=== PATIENT | female | born 1970 | race African-American/Black ===

== ENCOUNTER 2016-12-08 16:35 | Emergency (ER) | payer SELFPAY ==
--- NOTE | 2016-12-08 17:08 | ER Document Report ---
ED Medical Screen (RME) - General Chief Complaint: Abscess Stated Complaint: LUMP UNDER RIGHT ARM, TOOTH PAIN Notes: Lump under right arm. I greeted and performed a rapid initial assessment of this patient. Comprehensive ED assessment and evaluation of the patient, analysis of test results and completion of the medical decision making process will be conducted by additional ED providers. TRAVEL OUTSIDE OF THE [place] IN LAST 30 DAYS: No - Related Data Allergies/Adverse Reactions: hydrocodone [Hydrocodone] Allergy (Mild, Verified 07/25/14 11:33) VOMITING Past Medical History - Past Medical History Cardiac Medical History: Reports: Hx Hypertension Renal/ Medical History: Denies: Hx Peritoneal Dialysis Psychiatric Medical History: Reports: Hx Depression Past Surgical History: Reports: Hx Gynecologic Surgery - ectopic preg - Immunizations Hx Diphtheria, Pertussis, Tetanus Vaccination: No
[2016-12-08] MEDS ORDERED: OXYCODONE-ACETAMINOPHEN 5-325 MG TABLET PO ONE (19:12)
[2016-12-08] MEDS ORDERED: AMOXICILLIN TR/POT CLAVULANATE 500-125 MG TAB PO ONE (19:13)
[2016-12-08] MEDS ORDERED: ONDANSETRON ODT 4 MG TAB (6 TAB/DSPK) PO PRN (19:16)
--- NOTE | 2016-12-08 19:16 | ER Document Report ---
ED General - General Chief Complaint: Abscess Stated Complaint: LUMP UNDER RIGHT ARM, TOOTH PAIN Notes: Patient is a 46-year-old female with past medical history of recurrent axillary abscesses and hypertension who presents with an ongoing right axillary abscess. Describes the area as a constant, severely painful area. Pain is described as a sharp, stabbing pain. States this feels very similar to prior abscesses that she has had in the past. Nothing improves or worsens or symptoms. She denies any associated constitutional symptoms. Patient also complains of left upper molar dental pain. States that this is been causing her increasing pain over the last 3-4 months. Also describes a dull, constant, aching pain. She has scheduled appointment to see a dentist in the next several weeks. She denies any difficulty breathing or swallowing. TRAVEL OUTSIDE OF THE [place] IN LAST 30 DAYS: No - Related Data Allergies/Adverse Reactions: hydrocodone [Hydrocodone] Allergy (Mild, Verified 07/25/14 11:33) VOMITING Past Medical History - General Information source: Patient - Social History Smoking Status: Current Every Day Smoker Frequency of alcohol use: None Drug Abuse: None Lives with: Spouse/Significant other Family History: Reviewed & Not Pertinent Patient has suicidal ideation: No Patient has homicidal ideation: No - Past Medical History Cardiac Medical History: Reports: Hx Hypertension Renal/ Medical History: Denies: Hx Peritoneal Dialysis Psychiatric Medical History: Reports: Hx Depression Past Surgical History: Reports: Hx Gynecologic Surgery - ectopic preg - Immunizations Hx Diphtheria, Pertussis, Tetanus Vaccination: No Review of Systems - Review of Systems Notes: Constitutional: Negative for fever. HENT: Negative for sore throat. Positive for dental pain Eyes: Negative for visual changes. Cardiovascular: Negative for chest pain. Respiratory: Negative for shortness of breath. Gastrointestinal: Negative for abdominal pain, vomiting or diarrhea. Genitourinary: Negative for dysuria. Musculoskeletal: Negative for back pain. Skin: Positive for right axillary abscess Neurological: Negative for headaches, weakness or numbness. 10 point ROS negative except as marked above and in HPI. Physical Exam - Vital signs Vitals: Temp Pulse Resp BP Pulse Ox 97.5 F 100 20 121/101 H 99 12/08/16 16:52 12/08/16 16:52 12/08/16 16:52 12/08/16 16:52 12/08/16 16:52 Interpretation: Normal Notes: PHYSICAL EXAMINATION: GENERAL: Well-appearing, well-nourished and in no acute distress. HEAD: Atraumatic, normocephalic. EYES: Pupils equal round and reactive to light, extraocular movements intact, sclera anicteric, conjunctiva are normal. ENT: nares patent, oropharynx clear without exudates. Moist mucous membranes. There is a partial fracture #15 with mild associated buccal mucosa swelling. NECK: Normal range of motion, supple without lymphadenopathy LUNGS: Breath sounds clear to auscultation bilaterally and equal. No wheezes rales or rhonchi. HEART: Regular rate and rhythm without murmurs ABDOMEN: Soft, nontender, normoactive bowel sounds. No guarding, no rebound. No masses appreciated. EXTREMITIES: Normal range of motion, no pitting or edema. No cyanosis. NEUROLOGICAL: No focal neurological deficits. Moves all extremities spontaneously and on command. PSYCH: Normal mood, normal affect. SKIN: Warm, Dry, normal turgor, there is a 1 x 2 cm abscess in the central right axilla without surrounding cellulitis Course - Re-evaluation Re-evalutation: 12/08/16 19:13 Patient presents with a right axillary abscess without surrounding cellulitis. This is incised and drained without difficulty. Patient also complains of pain over tooth #15. This is most consistent with likely an infected tooth. Airway is patent. Vitals within normal limits. Patient is able swallow without any difficulty. There is no significant facial swelling. Patient will be started on antibiotics and a limited number of pain medications. I've instructed to follow-up with dentistry as earliest ability for definitive management. At this time will discharge with return precautions and follow-up recommendations. Verbal discharge instructions given a the bedside and opportunity for questions given. Medication warnings reviewed. Patient is in agreement with this plan and has verbalized understanding of return precautions and the need for primary care follow-up in the next 24-72 hours. - Vital Signs Vital signs: Temp Pulse Resp BP Pulse Ox 99.1 F 72 18 137/89 H 99 12/08/16 19:34 12/08/16 19:34 12/08/16 19:34 12/08/16 19:34 12/08/16 19:34 Procedures - Incision and Drainage Right Arm Type: Simple Anesthetic type: 1% Lidocaine mL's of anesthetic: 2 Blade size: 11 I&D procedure: Betadine prep applied Incision Method: Incision made by scalpel Amount/type of drainage: 5 cc purulent drainage Discharge - Discharge Clinical Impression: Infected tooth, Abscess of right axilla Condition: Good Disposition: HOME, SELF-CARE Additional Instructions: You were seen for an abscess that required drainage. Please clean this area with soap and water twice daily and apply a topical antibiotic. Dress the area after each cleaning. Please return if you develop fever, vomiting, the pain at the site worsens, you notice spreading redness from the area, or you have any other symptoms that are concerning to you. You have been seen for dental pain. It is very important that you follow-up with a dentist for definitive care. Please return if you develop fever greater than 101, swelling in your face, vomiting, difficulty breathing or swallowing, or any other symptoms that are concerning to you. For pain you should take ibuprofen 600 mg every 6 hours as needed. Prescriptions: Oxycodone HCl/Acetaminophen [Percocet 5-325 mg Tablet] 1 tab PO Q6HP PRN #10 tab PRN Reason: Clindamycin HCl 300 mg PO TID #21 capsule
[2016-12-08 19:44] VITALS: BP 137/89
== END 2016-12-08 19:45 | disposition home or self-care (01) ==
LOC: ER 16:35
PROC: 0H9BXZZ Drainage of Right Upper Arm Skin, External Approach (ICD-10-PCS; principal; 2016-12-08)
DX: L02.411 Cutaneous abscess of right axilla (principal); K04.7 Periapical abscess without sinus; I10 Essential (primary) hypertension; K08.89 Other specified disorders of teeth and supporting structures; Z88.5 Allergy status to narcotic agent; F17.200 Nicotine dependence, unspecified, uncomplicated
CPT/HCPCS: 99283

== ENCOUNTER 2017-01-07 13:26 | Emergency (ER) | payer SELFPAY ==
--- NOTE | 2017-01-07 13:44 | ER Document Report ---
ED Medical Screen (RME) - General Stated Complaint: ABSCESS Time seen by provider: 13:41 Mode of Arrival: Ambulatory Information source: Patient Notes: I have greeted and performed a rapid initial assessment of this patient. A comprehensive ED assessment and evaluation of the patient, analysis of test results and completion of the medical decision making process will be conducted by additional ED providers. TRAVEL OUTSIDE OF THE [place] IN LAST 30 DAYS: No - HPI Patient complains to provider of: ABSCESSES UNDER ARMS Onset: Last week Onset/Duration: Sudden Context: HX OF SAME, RIGHT DRAINED A COUPLE OF WEEKS AGO Quality of pain: Pressure, Throbbing Severity: Severe Pain Level: 5 Associated Symptoms: None Exacerbated by: Movement Relieved by: Denies Similar symptoms previously: Yes Recently seen / treated by doctor: Yes - Related Data Smoking: Cigarettes Frequency of alcohol use: Occasional Drug Abuse: None Allergies/Adverse Reactions: hydrocodone [Hydrocodone] Allergy (Mild, Verified 07/25/14 11:33) VOMITING Past Medical History - Past Medical History Cardiac Medical History: Reports: Hx Hypertension Renal/ Medical History: Denies: Hx Peritoneal Dialysis Psychiatric Medical History: Reports: Hx Depression Past Surgical History: Reports: Hx Gynecologic Surgery - ectopic preg - Immunizations Hx Diphtheria, Pertussis, Tetanus Vaccination: No
[2017-01-07] MEDS ORDERED: IBUPROFEN 800 MG TABLET PO ONE (13:45)
[2017-01-07 13:47] VITALS: BP 131/82
== END 2017-01-07 14:40 | disposition left against medical advice (07) ==
LOC: ER 13:26
DX: L02.419 Cutaneous abscess of limb, unspecified (principal); Z53.20 Procedure and treatment not carried out because of patient's decision for unspecified reasons; I10 Essential (primary) hypertension
CPT/HCPCS: 99281

== ENCOUNTER 2017-01-09 10:45 | Emergency (ER) | payer SELFPAY ==
--- NOTE | 2017-01-09 10:58 | ER Document Report ---
ED Medical Screen (RME) - General Stated Complaint: FEVER Mode of Arrival: Ambulatory Information source: Patient Notes: c/o abscess under both arms with redness and swelling, (Tmax 100.5) fever for past 2 days. Denies drainage or bleeding from areas. took tylenol, last dose yesterday morning which did help fever was here 2 days ago for same but couldn't stay to be seen I have greeted and performed a rapid initial assessment of this patient. A comprehensive ED assessment and evaluation of the patient, analysis of test results and completion of the medical decision making process will be conducted by additional ED providers. TRAVEL OUTSIDE OF THE [place] IN LAST 30 DAYS: No - Related Data Allergies/Adverse Reactions: hydrocodone [Hydrocodone] Allergy (Mild, Verified 01/09/17 10:54) VOMITING Past Medical History - Past Medical History Cardiac Medical History: Reports: Hx Hypertension Renal/ Medical History: Denies: Hx Peritoneal Dialysis Psychiatric Medical History: Reports: Hx Depression Past Surgical History: Reports: Hx Gynecologic Surgery - ectopic preg - Immunizations Hx Diphtheria, Pertussis, Tetanus Vaccination: No Physical Exam - Vital signs Vitals: Temp Pulse Resp BP Pulse Ox 98.0 F 87 16 123/78 97 01/09/17 10:51 01/09/17 10:51 01/09/17 10:51 01/09/17 10:51 01/09/17 10:51 Course - Vital Signs Vital signs: Temp Pulse Resp BP Pulse Ox 98.0 F 87 16 123/78 97 01/09/17 10:51 01/09/17 10:51 01/09/17 10:51 01/09/17 10:51 01/09/17 10:51
[2017-01-09] MEDS ORDERED: LIDOCAINE 1% INJ-PF (10 MG/ML) 30 ML SDV INJ ONE (11:53)
[2017-01-09] MEDS ORDERED: DIPH/PERTUSS(ACELL)/TETANUS VAC/PF 0.5 ML SYR (>=10YO) IM ONE (13:55)
--- NOTE | 2017-01-09 13:56 | ER Document Report ---
ED Skin Rash/Insect Bite/Abscs - General Chief Complaint: Abscess Stated Complaint: FEVER Mode of Arrival: Ambulatory Information source: Patient Notes: 46-year-old female presents to the emergency department complaining of raised tender areas to bilateral axillae. Patient reports history of multiple abscesses in the past. States last absces I&D was approximately 2 months ago to right axilla. Reports area has remains slightly tender but has not increased in size or have associated redness. However reports over the last week has developed a new area of swelling, redness, and pain to left axilla. Denies fever or drainage. States unknown last tetanus vaccination. TRAVEL OUTSIDE OF THE [place] IN LAST 30 DAYS: No - HPI Patient complains to provider of: Tender/swollen area Onset: Last week Onset/Duration: Persistent Quality of pain: Achy Severity: Moderate Pain Level: 3 Skin Character: Abscess Skin Temperature: Warm Similar symptoms previously: Yes Recently seen / treated by doctor: No - Related Data Allergies/Adverse Reactions: hydrocodone [Hydrocodone] Allergy (Mild, Verified 01/09/17 10:54) VOMITING Past Medical History - General Information source: Patient - Social History Smoking Status: Current Every Day Smoker Chew tobacco use (# tins/day): No Frequency of alcohol use: None Drug Abuse: None Lives with: Family Family History: Reviewed & Not Pertinent Patient has suicidal ideation: No Patient has homicidal ideation: No - Past Medical History Cardiac Medical History: Reports: Hx Hypertension Renal/ Medical History: Denies: Hx Peritoneal Dialysis Psychiatric Medical History: Reports: Hx Depression Past Surgical History: Reports: Hx Gynecologic Surgery - ectopic preg - Immunizations Hx Diphtheria, Pertussis, Tetanus Vaccination: Yes - unknown last Review of Systems - Review of Systems Constitutional: No symptoms reported EENT: No symptoms reported Cardiovascular: No symptoms reported Respiratory: No symptoms reported Gastrointestinal: No symptoms reported Genitourinary: No symptoms reported Female Genitourinary: No symptoms reported Musculoskeletal: No symptoms reported Skin: See HPI Hematologic/Lymphatic: No symptoms reported Neurological/Psychological: No symptoms reported -: Yes All other systems reviewed and negative Physical Exam - Vital signs Vitals: Temp Pulse Resp BP Pulse Ox 98.0 F 87 16 123/78 97 01/09/17 10:51 01/09/17 10:51 01/09/17 10:51 01/09/17 10:51 01/09/17 10:51 Interpretation: Normal - General General appearance: Appears well, Alert In distress: None - HEENT Head: Normocephalic, Atraumatic Eyes: Normal Pupils: PERRL - Respiratory Respiratory status: No respiratory distress Chest status: Nontender Breath sounds: Normal Chest palpation: Normal - Cardiovascular Rhythm: Regular Heart sounds: Normal auscultation Murmur: No Pulses: Normal: Radial Normal capillary refill: Yes - Abdominal Inspection: Normal Distension: No distension Bowel sounds: Normal Tenderness: Nontender Organomegaly: No organomegaly - Back Back: Normal, Nontender - Extremities General upper extremity: Normal inspection, Nontender, Normal color, Normal ROM , Normal strength, Normal temperature. No: Tender, Edema General lower extremity: Normal inspection, Nontender, Normal color, Normal ROM , Normal strength, Normal temperature, Normal weight bearing. No: Tender, Edema - Neurological Neuro grossly intact: Yes Cognition: Normal Orientation: AAOx4 Romeo Coma Scale Eye Opening: Spontaneous [place] Coma Scale Verbal: Oriented [place] Coma Scale Motor: Obeys Commands Romeo Coma Scale Total: 15 Speech: Normal Motor strength normal: LUE, RUE, LLE, RLE Sensory: Normal - Psychological Associated symptoms: Normal affect, Normal mood - Skin Skin Temperature: Warm Skin Moisture: Dry Skin Color: Normal Skin irregularity: Abscess - Approximately 3 cm diameter raised area of tenderness, warmth, erythema, and central fluctuance to left axilla. Patient has a very small approximately 1 cm area of tenderness to right axilla however is nonerythematous and nonfluctuant. Course - Re-evaluation Re-evalutation: 01/09/17 14:05 Patient hemodynamically stable, in no distress, afebrile. Left axilla abscess I &D'd and culture of drainage obtained. Discussed I&D of possible small abscess to right axilla with patient however she refuses at this time. Will give course of Bactrim, Tdap updated, patient appears so for discharge and agrees with home care, follow-up with PCP, and ED return precautions. - Vital Signs Vital signs: Temp Pulse Resp BP Pulse Ox 97.9 F 98 20 138/82 H 99 01/09/17 15:08 01/09/17 15:08 01/09/17 15:08 01/09/17 15:08 01/09/17 15:08 Procedures - Incision and Drainage Left Arm Time completed: 13:45 Type: Simple Anesthetic type: 1% Lidocaine mL's of anesthetic: 3 Blade size: 11, 16 I&D procedure: Betadine prep applied, Shurclens applied, Iodoform packing placed , Sterile dressing applied Incision Method: Incision made by scalpel Amount/type of drainage: moderate amount purulent drainage. Culture obtained. Discharge - Discharge Clinical Impression: Abscess Condition: Stable Disposition: HOME, SELF-CARE Additional Instructions: ABSCESS: You have an abscess (boil). This a pus-forming infection, usually due to staph. Some boils may be left to drain on their own, but most require lancing. From the time the tender lump first appears, it may be three or four days before the abscess is ready to suzi. Local heat and rest help at this stage of treatment. An antibiotic may prevent spread of the infection. Once the abscess is opened, packing may be placed into it. This is done so pus is not sealed inside by premature closure of the cavity. The packing will be removed at your follow-up visit or you may be advised to remove it yourself at home. Sometimes this packing must be replaced a few times during healing. The wound will heal with surprisingly little scar. Depending on the size and location of an abscess, healing can take one to four weeks. You may shower and wash the area around the incision site two or three times a day. Antibiotics may be prescribed, but are usually not necessary after an abscess has been drained. If you develop fever, chills, worsening pain, or increasing swelling in the area, call the doctor or return immediately. POST INCISION AND DRAINAGE: You have had an incision made to allow drainage of an abscess. The incision must remain open so that pus and debris can drain from the wound. If the abscess cavity is large, packing is placed. This keeps the tissues from collapsing and trapping pus inside, while the body shrinks the cavity. The packing may need to be replaced every day or two. The physician will instruct you on the packing. Keep a bulky dressing over the area. Replace it if it becomes saturated with blood or pus. Do not disturb the packing (if present). You may shower and cleanse the area with gentle soap and warm water two or three times a day. Local warmth may be soothing, and may promote faster healing. Return if you develop high fever or chills, or if you note spreading redness, increasing swelling, or increasing tenderness. ORAL NARCOTIC MEDICATION: You have been given a prescription for pain control. This medication is a narcotic. It's best taken with food, as nausea can result if taken on an empty stomach. Don't operate machinery or drive within six hours of taking this medication. Do not combine this medicine with alcohol, or with any medication which can cause sedation (such as cold tablets or sleeping pills) unless you get permission from the physician. Narcotics tend to cause constipation. If possible, drink plenty of fluids and eat a diet high in fiber and fruits. TRIMETHOPRIM-SULFA: You have been given a prescription for trimethoprim-sulfa (TMS, Septra, Bactrim). This is a combination antibiotic of the sulfa class, often used for urinary tract infections, middle ear infections, bronchitis, shigella intestinal infection, and Pneumocystis pneumonia. TMS is usually well-tolerated. Occasional side effects include nausea and decreased appetite. Septra is not recommended for infants less than two months of age. Do not take this medication if you have experienced severe side effects or allergy to sulfa medicine. You should stop this medicine at once and contact your physician if you develop any rash, joint pain, shortness of breath, bruising, or jaundice ( yellow color in the skin), or if you develop any other new or unusual symptoms. Tetanus Immunization Given You have been given an immunization against tetanus. Please record this in your records. In general, a booster is needed only once every 10 years. The tetanus shot protects against tetanus or "lockjaw," which is a complication of certain wound infections (the tetanus shot cannot protect against the actual infection). The immunization site may become warm and red due to local reaction. If this occurs, apply warm compresses and take aspirin or ibuprofen to reduce inflammation and discomfort. Return for evaluation if the reaction becomes severe. FOLLOW-UP CARE: Remove the packing that was placed in 48 hrs. If you are uncomfortable removing the packing yourself at home you may return to the emergency department for reevaluation and packing removal. If there is persistent drainage after removal of the packing you should return to the emergency department to have the abscess repacked. If you experience worsening or a significant change in your symptoms, return to the Emergency Department at any time for re-evaluation. Prescriptions: Oxycodone HCl/Acetaminophen [Percocet 5-325 mg Tablet] 1 tab PO Q6HP PRN #8 tablet PRN Reason: Sulfamethoxazole/Trimethoprim [Bactrim Ds Tablet] 1 tab PO BID 7 Days Referrals: [facility] [Primary Care Provider] - Follow up in 3-5 days
[2017-01-09 15:09] VITALS: BP 138/82
== END 2017-01-09 15:08 | disposition home or self-care (01) ==
LOC: ER 10:45
PROC: 0H9CXZZ Drainage of Left Upper Arm Skin, External Approach (ICD-10-PCS; principal; 2017-01-09)
DX: L02.412 Cutaneous abscess of left axilla (principal); I10 Essential (primary) hypertension; F17.200 Nicotine dependence, unspecified, uncomplicated; Z88.5 Allergy status to narcotic agent; Z98.890 Other specified postprocedural states; Z23 Encounter for immunization
CPT/HCPCS: 87070; 87075; 87186; 87205; 90715; 99283

== ENCOUNTER 2017-03-15 03:46 | Emergency (ER) | payer SELFPAY ==
--- NOTE | 2017-03-15 04:05 | ER Document Report ---
ED Resuscitation - General Mode of Arrival: Medic Cannot obtain history due to: Intubated, Unstable vital signs TRAVEL OUTSIDE OF THE [place] IN LAST 30 DAYS: No - HPI Witnessed arrest: Yes Bystander CPR?: No Onset: Just prior to arrival Severity: Severe Symptoms prior to event: Chest pain, Diaphoretic - Paramedics initial findings Unresponsive: Completely - Pre-hospital treatment Treatment: CPR/thumper, Defibrillated, Intubated <FLORECITA CAVAZOS - Last Filed: 03/15/17 05:40> <RAMOS ALMANZAR - Last Filed: 03/25/17 04:24> - General Stated Complaint: UNRESPONSIVE Notes: Patient is a 46-year-old female that presents to the emergency department today secondary to being found unresponsive. EMS reports that the patient was down for approximately 6-7 minutes prior to their arrival. According to EMS, upon their arrival the patient was pulseless. EMS adminstered ACLS for 55 minutes prior to arrival including defibrillation x12 as the patient went into V-fib, V- tach, and then PEA. Patient was administered epinephrine, sodium bicarbonate, and Narcan with no response. According to EMS, the patient complained of a burning in her chest for the last week or two and tonight complained of not feeling well prior to cardiopulmonary arrest. EMS intubated the patient prior to arrival. (FLORECITA CAVAZOS) - Related Data Allergies/Adverse Reactions: hydrocodone [Hydrocodone] Allergy (Mild, Verified 01/09/17 10:54) VOMITING Past Medical History - General Information source: REPLACED BY [facility] Records Cannot obtain history due to: Intubated, Unstable vital signs - Social History Smoking Status: Unknown if Ever Smoked Family History: None - Past Medical History Cardiac Medical History: Reports: Hx Hypertension Psychiatric Medical History: Reports: Hx Depression Past Surgical History: Reports: Hx Gynecologic Surgery - ectopic preg - Immunizations Hx Diphtheria, Pertussis, Tetanus Vaccination: Yes - unknown last <FLORECITA CAVAZOS - Last Filed: 03/15/17 05:40> Review of Systems - Review of Systems -: Yes ROS unobtainable due to patient's medical condition <FLORECITA CAVAZOS - Last Filed: 03/15/17 05:40> Physical Exam - General General appearance: Unresponsive - HEENT Head: Normocephalic, Atraumatic, Other - no external signs of trauma Eyes: Other - fixed and dilated - Respiratory Respiratory status: Other - intubated, tube confirmed to be in proper location, 7.0 tube 24 @ the teeth, equal breath sounds bilaterally with bagging - Abdominal Distension: No distension - Extremities General upper extremity: Other - cold and mottled. No: Edema General lower extremity: Other - cold and mottled. No: Edema - Skin Skin Temperature: Cold Skin Color: Mottled <FLORECITA CAVAZOS - Last Filed: 03/15/17 05:40> <RAMOS ALMANZAR - Last Filed: 03/25/17 04:24> - Cardiovascular Notes: No palpable pulses (FLORECITA CAVAZOS) Course <MACYBISHOPFLORECITA - Last Filed: 03/15/17 05:40> <RAMOS ALMANZAR - Last Filed: 03/25/17 04:24> - Re-evaluation Re-evalutation: 03/15/17 04:19 presented to the emergency department in cardiac arrest. According to the cousin and the boyfriend she had been complaining for about an hour and 45 minutes of discomfort in her chest and asked him to Josue back. Also had multiple episodes of vomiting they stated they rubbed her back for a little and she follow bit better. She became very very diaphoretic after vomiting said she follow bit better so they had some steak. She then went to lay down in the room started experiencing a little bit of discomfort again again got diaphoretic. They said they carried down with the lights off so that she can rest. They thought she was sleeping internal light either in the back of her head and she was gasping for air. The boyfriend reports that he stuck his fingers down her throat because her tongue was purple to try to help her breathe. At this point she gave another couple gasps of air they tried to lift her upper anterior outside she can get some cold air. EMS reports no pulse on arrival shock 12 times for V. fib and V. tach. They had given epinephrine and bicarbonate. On ED arrival she was in cardiac arrest with no pulse. Initial rhythm on arrival was V. fib she was defibrillated. She deteriorated into a torsades rhythm. We gave her calcium chloride 2 A of bicarbonate and amp of D50 amiodarone 300 mg and 2 g of magnesium. Ultrasound checked multiple times no cardiac activity. CPR was continued in progress after the ET tube was verified to be in the proper place. No spontaneous return to pulses. Time of was called. Discussion with boyfriend and cousin at bedside. 03/25/17 04:24 (RAMOS ALMANZAR) Critical Care Note - Critical Care Note Total time excluding time spent on procedures (mins): 35 <RAMOS ALMANZAR - Last Filed: 03/25/17 04:24> Discharge <FLORECITA CAVAZOS - Last Filed: 03/15/17 05:40> <RAMOS ALMANZAR - Last Filed: 03/25/17 04:24> - Discharge Clinical Impression: cardiopulmonary arrest Disposition: Referrals: [facility] [Primary Care Provider] - Follow up as needed Scribe Attestation: 03/15/17 04:22 I personally performed the services described in the documentation reviewed the documentation recorded by my scribe in my presence and it accurately and completely records my words and actions (RAMOS ALMANZAR) Scribe Documentation - Scribe Written by Robert:: Robert Roberts, [id number] 03/15/2017 acting as scribe for :: Valentin <FLORECITA CAVAZOS - Last Filed: 03/15/17 05:40>
[2017-03-15] MEDS ORDERED: MAGNESIUM SULFATE PF/INJ 40 MEQ/10 ML SDV ONE (10:20)
[2017-03-15] MEDS ORDERED: AMIODARONE HCL INJ 150 MG/3 ML VIAL IV ONE (10:20)
[2017-03-15] MEDS ORDERED: SODIUM BICARBONATE 8.4% INJ 50 MEQ/50 ML DISP.SYRIN ONE (10:20)
== END 2017-03-15 07:33 | disposition expired ==
LOC: ER 03:46
DX: I46.9 Cardiac arrest, cause unspecified (principal); I10 Essential (primary) hypertension; Z88.5 Allergy status to narcotic agent
CPT/HCPCS: 99285; 92950; 96374; 96375; J3475; J3490; J0282

== ENCOUNTER → 2017-03-15 | Outpatient (CLI) | payer OTHER | LOC: OROUT 19:20 | DX: Z52.9 Donor of unspecified organ or tissue (principal) ==